=== PATIENT | male | born 1995 | race Caucasian/White ===

== ENCOUNTER 2016-06-09 09:51 | Emergency (ER) | payer OTHER ==
[~2016-06-09] VITALS: Ht 182.9 cm; Wt 84.0 kg
[2016-06-09 09:54] VITALS: BP 135/63; PULSE 51; RESP 15; TEMP 98.2; O2SAT 98
[2016-06-09] MEDS ORDERED: LIDOCAINE HCL 1% 50 ML VIAL INFIL ONE (11:00)
--- NOTE | 2016-06-09 11:53 | PD ---
Physical Exam Date Seen by Provider: Jun 09, 2016 Time Seen by Provider: 11:52 Narrative 21-year-old male that presents to the ED for evaluation of pylonidal cyst. I was asked by my attending to incise and drain this. Please refer to her note. Data Data Last Documented VS Vital Signs Date Time Temp Pulse Resp B/P Pulse Ox O2 Delivery O2 Flow Rate FiO2 06/09/16 09:54 98.2 51 15 135/63 98 Orders Lidocaine 1% Inj (50 Ml) (Xylocaine 1% I (06/09/16 11:00) [facility] Medical Record Reviewed: Yes Supervised Visit with LAZARO: No Procedures Procedure Narrative After the risks and benefits were discussed the following procedure was performed: INCISION AND DRAINAGE OF ABSCESS: The area was prepped and was sterilely draped. A subcutaneous wheal of 1 % Xylocaine with a total number 5 mL was used to anesthetize the area. The area was properly anesthetized. A number 11 scalpel was used to make a 1-cm incision across the area of the abscess. Cultures were obtained. The abscess was drained an irrigated with normal saline. Quarter inch iodoform packing was placed in the wound. Sterile dressing applied. Patient advised to have packing removed in two days. Diagnosis Primary Impression: Pilonidal cyst Referrals: Urban Jordan MD Patient Instructions: General Instructions Departure Forms: Tests/Procedures, Work Release Enter return to work date: Jun 11, 2016 Additional Instruction: Recheck in 2 days for packing removal. I recommend you come early on the day before 9 am as it might be our less busy time. See ED if worsening symptoms. Motrin or tylenol for pain. Finish antibiotic given to you by your PCP. Apply warm compresses. Change dressing daily. Disposition: 01 DISCHARGE HOME Condition: Stable Erlin Gifford Jun 09, 2016 11:53
--- NOTE | 2016-06-09 12:56 | PD ---
HPI Chief Complaint: Skin Problem Time Seen by Provider: 10:35 Travel History International Travel<30 days: No Contact w/Intl Traveler<30days: No Traveled to known affect area: No History of Present Illness HPI 21yo M with no PMH presents to the ED with c/o abscess in buttocks for about 1 week. Pt denies any fever, chest pain, sob, n/v, abdominal pain. States it started smaller and gradually became larger. Went to his PMD today and was referred to the ED for further management. Pt states this is the first time this has happened. PFSH Social History Alcohol Use: Yes Tobacco Use: No Allergies-Medications (Allergen,Severity, Reaction): Coded Allergies: Ceclor (Verified Allergy, Intermediate, HIVES, 06/09/16) Motrin (Verified Allergy, Intermediate, HIVES, 06/09/16) Review of Systems Except as stated in HPI: all other systems reviewed are Neg Physical Exam Narrative GENERAL: 21yo M not in distress. SKIN: Focused skin assessment warm/dry. HEAD: Atraumatic. Normocephalic. CARDIOVASCULAR: Regular rate and rhythm. No murmur appreciated. RESPIRATORY: No accessory muscle use. Clear to auscultation. Breath sounds equal bilaterally. GASTROINTESTINAL: Abdomen soft, non-tender, nondistended. No rebound tenderness or guarding. RECTAL: +Left 3cm by 2cm abscess at the left near upper part of the felicity cleft of the buttock. +Fluctuance. MUSCULOSKELETAL: No obvious deformities. No clubbing. No cyanosis. No edema. NEUROLOGICAL: Awake and alert. No obvious cranial nerve deficits. Motor grossly within normal limits. Normal speech. PSYCHIATRIC: Appropriate mood and affect; insight and judgment normal. Data Data Last Documented VS Vital Signs Date Time Temp Pulse Resp B/P Pulse Ox O2 Delivery O2 Flow Rate FiO2 06/09/16 09:54 98.2 51 15 135/63 98 Orders Lidocaine 1% Inj (50 Ml) (Xylocaine 1% I (06/09/16 11:00) Wound Culture And Gram Stain (06/09/16 12:54) MDM Medical Decision Making Medical Screen Exam Complete: Yes Emergency Medical Condition: Yes Differential Diagnosis Pilonidal abscess vs. perirectal abscess Narrative Course 21yo M with pilonidal abscess. States this is the first time so will attempt I& D in the ED. Informed pt that recurrence rate is high and pt will need to follow up in surgery clinic. I&D performed by my PA without complications. Pt instructed to return in 48 hours for wound check. Diagnosis Primary Impression: Pilonidal cyst Referrals: Urban Jordan MD Patient Instructions: General Instructions Departure Forms: Work Release, Enter return to work date: Tests/Procedures Additional Instructions: Recheck in 2 days for packing removal. I recommend you come early on the day before 9 am as it might be our less busy time. See ED if worsening symptoms. Motrin or tylenol for pain. Finish antibiotic given to you by your PCP. Apply warm compresses. Change dressing daily. Disposition: 01 DISCHARGE HOME Condition: Stable Chelo Hamilton DO Jun 09, 2016 12:56
[2016-06-09 14:09] VITALS: BP 121/76
== END 2016-06-09 13:34 | disposition home or self-care (01) ==
LOC: NEPC 09:51
DX: L05.91 Pilonidal cyst without abscess (principal); B95.61 Methicillin susceptible Staphylococcus aureus infection as the cause of diseases classified elsewhere
CPT/HCPCS: 10080; 86403; 87070; 87186

== ENCOUNTER 2016-06-11 07:07 | Emergency (ER) | payer OTHER ==
[~2016-06-11] VITALS: Ht 182.9 cm; Wt 85.0 kg
[2016-06-11 07:09] VITALS: BP 130/67; PULSE 46; RESP 16; TEMP 97.5; O2SAT 99
[2016-06-11] MEDS ORDERED: DICL500 PO (07:21)
--- NOTE | 2016-06-11 07:30 | PD ---
HPI Chief Complaint: Wound/Suture/Staple Re-Check Time Seen by Provider: 07:28 Travel History International Travel<30 days: No Contact w/Intl Traveler<30days: No Traveled to known affect area: No History of Present Illness HPI 21-year-old male presents to the emergency department for packing removal of pilonidal abscess after incision and drainage on June 09. Denies fever, chills , nausea, vomiting. Reports improvement in symptoms. Has been taking antibiotics as prescribed. Has no other medical complaints. No other modifying factors or associated signs and symptoms. [facility] Social History Alcohol Use: Yes Tobacco Use: No Substance Use: No Allergies-Medications (Allergen,Severity, Reaction): Coded Allergies: Ceclor (Verified Allergy, Intermediate, HIVES, 06/11/16) Motrin (Verified Allergy, Intermediate, HIVES, 06/11/16) Reported Meds & Prescriptions Reported Meds & Active Scripts Active Reported Dicloxacillin (Dicloxacillin Sodium) 500 Mg Cap 500 Mg PO BID Review of Systems Except as stated in HPI: all other systems reviewed are Neg Physical Exam Narrative GENERAL: Well-nourished, well-developed patient, in no acute distress SKIN: There is an indurated area to the coccyx with iodoform packing in place. Areas with mild erythema and minimal amount of clear drainage. HEAD: Atraumatic. Normocephalic. EYES: Pupils equal and round. No scleral icterus. No injection or drainage. ENT: Mucosa pink and moist. Airway patent. NECK: Trachea midline. CARDIOVASCULAR: Regular rate. RESPIRATORY: No accessory muscle use. GASTROINTESTINAL: Flat. MUSCULOSKELETAL: No obvious deformities. No clubbing. No cyanosis. No edema. NEUROLOGICAL: Awake and alert. Oriented 3. No obvious cranial nerve deficits. Motor grossly within normal limits. Normal speech. PSYCHIATRIC: Appropriate mood and affect; insight and judgment normal. Data Data Last Documented VS Vital Signs Date Time Temp Pulse Resp B/P Pulse Ox O2 Delivery O2 Flow Rate FiO2 06/11/16 07:09 97.5 46 16 130/67 99 Room Air MDM Medical Decision Making Medical Screen Exam Complete: Yes Emergency Medical Condition: Yes Medical Record Reviewed: Yes Differential Diagnosis Abscess packing removal, wound recheck, medical clearance Narrative Course 21-year-old male presents for packing removal of pilonidal abscess. Reports improvement in symptoms. Patient is afebrile and nontoxic-appearing. He denies fever, chills, nausea, vomiting. Taking antibiotics as prescribed. Packing removed. Patient tolerated well. Patient verbalizes understanding and agreement with treatment plan. Patient is medically cleared and stable for discharge. Discussed reasons to return to the emergency department. Instructed patient to follow up with primary care provider. Patient agrees with treatment plan. The patients vital signs are stable and the patient is stable for outpatient follow-up and treatment. Patient discharged home, stable and in no acute distress. Diagnosis Primary Impression: Encounter for abscess packing removal Referrals: Primary Care Physician Patient Instructions: Abscess (ED), Abscess Follow-up (ED), General Instructions Departure Forms: Tests/Procedures, Work Release Enter return to work date: Jun 12, 2016 Additional Instructions: Complete full course of antibiotics Warm compresses to the affected area Keep area clean and dry Ibuprofen or Tylenol as directed and as needed for pain and inflammation Follow-up with primary care provider Return to emergency department immediately with worsening of symptoms Med/Other Pt SpecificInfo: No Meds Exist/No RX given Disposition: 01 DISCHARGE HOME Condition: Stable Whitney Bobo Jun 11, 2016 07:30
== END 2016-06-11 07:45 | disposition home or self-care (01) ==
LOC: NEPK 07:07
DX: Z48.01 Encounter for change or removal of surgical wound dressing (principal)
CPT/HCPCS: 99281